=== PATIENT | female | born 1960 | race Caucasian/White ===

== ENCOUNTER 2016-07-01 11:21 | Day surgery (SDC) | payer BC ==
[2016-06-23 16:40] LABS: HEMOGLOBIN 13.8 g/dL (12.0-16.0)
[2016-06-23 16:48] LABS: BUN (BLOOD UREA NITROGEN) 11 MG/DL (6-23); CALCIUM, SERUM 9.1 MG/DL (8.5-10.4); CHLORIDE, SERUM 102 MMOL/L (96-112); CO2 (CARBON DIOXIDE) 30 MMOL/L (24-34); CREATININE 0.76 MG/DL (0.55-1.02); GFR AFRICAN AMERICAN 101 ML/MIN (>=60); GFR NON AFRICAN AMERICAN 87 ML/MIN (>=60); GLUCOSE, SERUM 89 MG/DL (60-99); SODIUM, SERUM 138 MMOL/L (135-148)
--- NOTE | ~2016-07-01 | OP ---
Record Of Operation [facility] [address] [place]. [address] NAME: JACQUELINE DESOUZA : 56 [place] [facility] [place] [id number] AGE: 55 ADM/REG DATE : 07/01/16 MR#: [id number] REPORT SERV DATE: 07/01/16 DICTATED BY: BEATRICE GARCIA DATE: 07/01/16 REPORT STATUS : Draft TRANSCRIBED BY: MODL DATE: 07/01/16 DATE OF PROCEDURE: 07/01/2016 PREOPERATIVE DIAGNOSIS: Interstitial cystitis. POSTOPERATIVE DIAGNOSIS: Interstitial cystitis. PROCEDURE PERFORMED: Cystoscopy with fulguration of Hunner's ulcers. SURGEON: Beatrice Garcia M.D.. ANESTHESIA: General. COMPLICATIONS: None. DRAINS: None. SPECIMEN: None. ESTIMATED BLOOD LOSS: Minimal. INDICATION: Ms. Desouza is a 55-year-old, with a small capacity bladder with pain and frequency of urination. Multiple prior cystoscopy show a biopsy proven benign ulcerations at the dome of the bladder and upper bladder wall. She has tried innumerable treatments for IC, fulguration of ulcers has provided the best symptomatic relief. She is seven months or so, since her last fulguration. She presents for repeat fulguration of ulcer. TECHNIQUE: Informed consent was obtained. She received Levaquin in preop. She was brought to the operating room, general anesthesia was administered. Genitals and perineum were prepped and draped in the lithotomy position. Rigid cystoscopy was performed. The urethra was normal. The bladder base and trigone were normal. There were multiple erythematous raised ulcerations at the bladder dome along with scars from prior fulguration. No papillary lesions. Clear efflux of urine was seen on the right and left. I took care not to over distend the bladder. Each ulcer was individually fulgurated with a Bugbee. All ulcers visible on the posterior wall and dome were fulgurated. None were present at the bladder base. Two small petechiae were present on the right and left bladder wall. These were also fulgurated. The bladder was drained. I confirmed hemostasis under low filling pressures. She tolerated the procedure well and taken to recover room in satisfactory condition. I will see her back in three months. ZULEMA/MODL Beatrice Garcia M.D. Record Of Operation [address] [address] NAME: JACQUELINE DESOUZA : 56 [place] [facility] [place] [id number] AGE: 55 ADM/REG DATE : 07/01/16 MR#: [id number] REPORT SERV DATE: 07/01/16 DICTATED BY: BEATRICE GARCIA DATE: 07/01/16 REPORT STATUS : Draft TRANSCRIBED BY: MODL DATE: 07/01/16 / [id number] CC: Luis Ferreira M.D.
[~2016-07-01 11:21] MED LIST: AMIT25 PO; AZO STANDARD PO; ELMIRON 100 MG100 MG OR; ENABLEX15 PO; ESTRADIOL1 MG PO; LIPITOR20 PO; NORCO1 TA2 PO; PAX10 PO; PERCOCET 7.5/321 TAB PO; PRELIEF PO; PROBIOTIC; SYN112 PO; TAGAMET 200 MG200 MG PO; UROGESIC-BLU OR; [UNRECOGNIZED DRUG - OTHER]
== END 2016-07-01 18:33 | disposition home or self-care (01) ==
LOC: SDC 11:21
PROVIDERS: Urology
PROC: 0T5B8ZZ Destruction of Bladder, Via Natural or Artificial Opening Endoscopic (ICD-10-PCS; principal; 2016-07-01 12:45)
DX: N30.10 Interstitial cystitis (chronic) without hematuria (principal); K21.9 Gastro-esophageal reflux disease without esophagitis; E03.9 Hypothyroidism, unspecified; F17.210 Nicotine dependence, cigarettes, uncomplicated; F32.9 Major depressive disorder, single episode, unspecified; Z90.710 Acquired absence of both cervix and uterus; Z90.721 Acquired absence of ovaries, unilateral; Z98.890 Other specified postprocedural states
CPT/HCPCS: 80048; 85014; 85018; 93005; J2250; J2405; J3010; Q9967